=== PATIENT | female | born 1970 | race Caucasian/White ===

== ENCOUNTER 2023-02-11 16:28 | Emergency (ER) | payer MEDICAID ==
[2023-02-11 16:32] VITALS: PULSE 84
== END 2023-02-11 17:32 | disposition left against medical advice (07) ==
LOC: ER 16:28
DX: R10.13 Epigastric pain (principal); Z53.21 Procedure and treatment not carried out due to patient leaving prior to being seen by health care provider
CPT/HCPCS: 99281